=== PATIENT | male | born 1960 | race African-American/Black ===

== ENCOUNTER 2021-10-30 08:24 | Emergency (ER) | payer BC, MEDICAID ==
[~2021-10-30] VITALS: Ht 182.9 cm; Wt 193.0 kg
[2021-10-30 09:40] LABS: Basophils # (auto) 0.1 10 ^3/uL (0-0.2); Eosinophils # (auto) 0.1 10 ^3/uL (0-0.8); Hemoglobin 10.3 g/dL (13.5-17.5); Lymphocytes # (auto) 0.9 10 ^3/uL (0.4-5.4); Monocytes # (auto) 0.5 10 ^3/uL (0-1.3); Nucleated Red Blood Cells % 0.1 %
[2021-10-30 09:42] LABS: Basophils % (auto) 0.9 % (0.0-2.0); Eosinophils % (auto) 1.5 % (0.0-7.0); Hematocrit 32.3 % (41.0-53.0); Lymphocytes % (auto) 15.9 % (10.0-50.0); Mean Corpuscular Hemoglobin 24.9 pg (28.0-32.0); Mean Corpuscular Hgb Conc. 31.8 g/dL (32.0-36.0); Mean Corpuscular Volume 78.4 fL (80.0-100.0); Monocytes % (auto) 9.2 % (0.0-12.0); Neutrophils # (auto) 4.3 10 ^3/uL (1.6-8.6); Neutrophils % (auto) 72.5 % (37.0-80.0); Red Blood Cells 4.12 10^6/uL (4.5-5.90); Red Cell Distribution Width 15.9 % (11.8-14.3); White Blood Cell 5.9 10^3/uL (4.4-10.8)
[2021-10-30 09:51] LABS: Potassium 4.2 mmol/L (3.5-5.1)
[2021-10-30 10:04] LABS: Albumin 2.6 g/dL (3.4-5.0); BUN/Creatinine Ratio 22.9; Bilirubin, Total 0.8 mg/dL (0.2-1.0); Calcium 8.4 mg/dL (8.5-10.1); Total Protein 6.9 g/dL (6.4-8.2)
[2021-10-30 13:11] LABS: INR 1.07 (0.9-1.15); Partial Thromboplastin Time 32.2 sec (24.6-33.4)
[2021-10-30] MEDS ORDERED: ENOXAPARIN SOD 80 MG/0.8ML SYRINGE SC ONE (13:45)
[2021-10-30] MEDS ORDERED: PIPERACILLIN-TAZO 4.5GM 100 ML IV ONE (17:00)
[2021-10-30] MEDS ORDERED: FUROSEMIDE 40 MG/4 ML VIAL IV ONE (17:00)
[2021-10-30] MEDS ORDERED: VANCOMYCIN 1GM/250ML 250 ML IV ONE ×2 (20:00)
[2021-10-30] MEDS ORDERED: ACETAMINOPHEN 500 MG TAB PO ONE (20:00)
[2021-10-31 02:19] VITALS: BP 147/70
[2021-10-31 04:06] VITALS: BP 151/65
[2021-10-31] MEDS ORDERED: ACETAMINOPHEN 500 MG TAB PO ONE (07:30)
[2021-10-31] MEDS ORDERED: cefTRIAXone 1GM/50ML D5W 50 ML IV ONE (14:15)
[2021-10-31] MEDS ORDERED: HYDROcodone-ACET 5/325MG TAB PO ONE (14:15)
[2021-10-31] MEDS ORDERED: ACETYLCYSTEINE 10 %(100MG/ML) SOL 4ML NEB ONE (14:15)
[2021-10-31] MEDS ORDERED: AZITHROMYCIN 500MG/ 250ML 250 ML IV ONE (14:15)
[2021-10-31] MEDS ORDERED: ACETYLCYSTEINE 10 %(100MG/ML) SOL 4ML NEB SCH (18:00)
[2021-10-31] MEDS ORDERED: IPRATROPIUM BROM 0.5 MG/2.5ML INH SOL NEB ONE (18:00)
[2021-10-31] MEDS ORDERED: ALBUTEROL SULF 2.5 MG/0.5ML(0.5%) NEB SOLN NEB ONE (18:00)
[2021-10-31 19:36] VITALS: BP 142/58
== END 2021-10-31 20:26 | disposition short-term general hospital (02) ==
LOC: ER 08:24 → EDBD 08:24 → ER 10-31 20:26
DX: J81.1 Chronic pulmonary edema (principal); E11.65 Type 2 diabetes mellitus with hyperglycemia; E11.21 Type 2 diabetes mellitus with diabetic nephropathy; R74.8 Abnormal levels of other serum enzymes; E44.0 Moderate protein-calorie malnutrition; D63.8 Anemia in other chronic diseases classified elsewhere; R79.1 Abnormal coagulation profile; Z68.43 Body mass index [BMI] 50.0-59.9, adult; Z20.822 Contact with and (suspected) exposure to COVID-19
CPT/HCPCS: 36415; 36600; 71045; 80053; 82805; 84484; 85025; 85379; 85610; 85730; 87040; 87426; 93005; 96365; 96366; 96367; 96368; 96372; 96375; 99285; J0456; J0696; J1650; J1940; J2543; J3370; J7644

== ENCOUNTER 2021-11-11 18:07 | Inpatient (IN) | payer BC, MEDICAID ==
[~2021-11-11] VITALS: Ht 188 cm; Wt 206.0 kg
[2021-11-11] MEDS ORDERED: ENOXAPARIN SOD 100 MG/1 ML SYRINGE SC ONE (20:15)
[2021-11-11 20:17] LABS: Albumin 2.5 g/dL (3.4-5.0); BUN/Creatinine Ratio 23.5; Calcium 7.7 mg/dL (8.5-10.1); Magnesium 2.6 mg/dL (1.6-2.6); Potassium 4.6 mmol/L (3.5-5.1)
[2021-11-11 20:19] LABS: Bilirubin, Total 0.8 mg/dL (0.2-1.0); Total Protein 6.4 g/dL (6.4-8.2)
[2021-11-11 20:25] LABS: Basophils # (auto) 0.1 10 ^3/uL (0-0.2); Eosinophils # (auto) 0.2 10 ^3/uL (0-0.8); Eosinophils % (auto) 2.1 % (0.0-7.0); Hematocrit 37.5 % (41.0-53.0); Hemoglobin 11.5 g/dL (13.5-17.5); Lymphocytes # (auto) 1.5 10 ^3/uL (0.4-5.4); Lymphocytes % (auto) 18.9 % (10.0-50.0); Mean Corpuscular Hemoglobin 24.4 pg (28.0-32.0); Mean Corpuscular Hgb Conc. 30.5 g/dL (32.0-36.0); Mean Corpuscular Volume 79.8 fL (80.0-100.0); Monocytes # (auto) 0.9 10 ^3/uL (0-1.3); Neutrophils # (auto) 5.3 10 ^3/uL (1.6-8.6); Nucleated Red Blood Cells % 0.2 %; Red Cell Distribution Width 17.1 % (11.8-14.3); White Blood Cell 7.9 10^3/uL (4.4-10.8)
[2021-11-11] MEDS ORDERED: FUROSEMIDE 40 MG/4 ML VIAL IV ONE (20:30)
[2021-11-11] MEDS ORDERED: AZITHROMYCIN 500MG/ 250ML 250 ML IV ONE (21:15)
[2021-11-11] MEDS: NOREPINEPHRINE 8 MG/250ML KIT 250 ML IV SCH (21:18)
[2021-11-11] MEDS ORDERED: DEXTROSE (50%) 50ML SYRG IV PRN (23:00)
[2021-11-11] MEDS ORDERED: DOCUSATE SOD 100 MG CAP PO PRN (23:00)
[2021-11-11] MEDS ORDERED: ONDANSETRON HCL 4 MG/2 ML VIAL IV PRN (23:00)
[2021-11-12] VITALS (42 sets, daily range): BP systolic 86–142; BP diastolic 48–76
[2021-11-12] MEDS ORDERED: MORPHINE SULFATE INJ 2 MG/ml SYRG IV PRN (00:30)
[2021-11-12] MEDS ORDERED: NITROGLYCERIN 0.4 MG SL TAB SL PRN (00:30)
[2021-11-12] MEDS: ALBUMIN 25% 50 ML IV SCH ×3 (01:35→16:30)
[2021-11-12] MEDS: InsuLIN REG 1unit/0.01ml Soln (100units/ml) SC SCH ×4 (01:44→18:47)
[2021-11-12] MEDS: methylPREDNISolone SOD SUCC 40 MG/ML VL IV SCH ×3 (02:55→11:32)
[2021-11-12] MEDS: ACCU-CHEK COMFORT CURVE STRIP VI SCH ×4 (06:00→18:47)
[2021-11-12 07:32] LABS: Basophils # (auto) 0 10 ^3/uL (0-0.2); Basophils % (auto) 0.4 % (0.0-2.0); Eosinophils # (auto) 0 10 ^3/uL (0-0.8); Hematocrit 36.9 % (41.0-53.0); Lymphocytes # (auto) 0.8 10 ^3/uL (0.4-5.4); Monocytes # (auto) 0.2 10 ^3/uL (0-1.3); Neutrophils # (auto) 5.7 10 ^3/uL (1.6-8.6); Nucleated Red Blood Cells % 0.1 %
[2021-11-12 07:33] LABS: Eosinophils % (auto) 0.6 % (0.0-7.0); Hemoglobin 11.6 g/dL (13.5-17.5); Lymphocytes % (auto) 11.5 % (10.0-50.0); Mean Corpuscular Hemoglobin 24.8 pg (28.0-32.0); Mean Corpuscular Hgb Conc. 31.3 g/dL (32.0-36.0); Mean Corpuscular Volume 79.1 fL (80.0-100.0); Monocytes % (auto) 3.6 % (0.0-12.0); Neutrophils % (auto) 83.9 % (37.0-80.0); Red Blood Cells 4.66 10^6/uL (4.5-5.90); Red Cell Distribution Width 17.4 % (11.8-14.3); White Blood Cell 6.8 10^3/uL (4.4-10.8)
[2021-11-12 07:58] LABS: Albumin 2.7 g/dL (3.4-5.0); BUN/Creatinine Ratio 29.7; Bilirubin, Total 1.2 mg/dL (0.2-1.0); Calcium 8.5 mg/dL (8.5-10.1); Total Protein 6.6 g/dL (6.4-8.2)
[2021-11-12] MEDS: FAMOTIDINE (10MG/ML) 2ML VL IV SCH ×2 (09:46→21:22)
[2021-11-12] MEDS: AZITHROMYCIN 500MG/ 250ML 250 ML IV SCH (09:46)
[2021-11-12] MEDS ORDERED: FUROSEMIDE 40 MG/4 ML VIAL IV SCH (10:00)
[2021-11-12] MEDS ORDERED: HEPARIN SODIUM (PORCINE) 5000 UNITS/ML 1ML VIAL SC SCH (10:00)
[2021-11-12 13:33] LABS: Urine Bacteria NONE SEEN /hpf (None Seen); Urine Blood 1+ /uL (Negative); Urine Budding Yeast MANY /hpf (None Seen); Urine Mucus FEW (None Seen); Urine Specific Gravity 1.009 (1.001-1.035); Urine WBC 51 /hpf (0 - 3); Urine WBC Clumps PRESENT /hpf (None Seen)
[2021-11-12] MEDS ORDERED: CEFTRIAXONE SODIUM 2 GM in D5W 5% 50 ML IV ONE (14:15)
[2021-11-12] MEDS ORDERED: OPTISON 3ml Vial for INJ IV ONE (15:50)
[2021-11-12] MEDS: NOREPINEPHRINE 8 MG/250ML KIT 250 ML IV SCH (20:11)
[2021-11-12] MEDS: FUROSEMIDE 40 MG/4 ML VIAL IV SCH (21:21)
[2021-11-12] MEDS: APIXABAN 5 MG TAB PO SCH (21:22)
[2021-11-13] MEDS: InsuLIN REG 1unit/0.01ml Soln (100units/ml) SC SCH ×5 (00:09→23:15)
[2021-11-13 03:14] VITALS: BP 143/68
[2021-11-13 06:04] VITALS: BP 125/64
[2021-11-13 06:30] LABS: Potassium 4.8 mmol/L (3.5-5.1)
[2021-11-13 06:35] LABS: BUN/Creatinine Ratio 29.5; Calcium 8.5 mg/dL (8.5-10.1)
[2021-11-13] MEDS: ACCU-CHEK COMFORT CURVE STRIP VI SCH ×5 (06:40→23:12)
[2021-11-13] MEDS: AZITHROMYCIN 500MG/ 250ML 250 ML IV SCH (08:32)
[2021-11-13] MEDS: APIXABAN 5 MG TAB PO SCH ×2 (08:33→23:02)
[2021-11-13] MEDS: FUROSEMIDE 40 MG/4 ML VIAL IV SCH (08:41)
[2021-11-13 09:00] VITALS: BP 142/75
[2021-11-13] MEDS: CEFTRIAXONE SODIUM 2 GM in D5W 5% 50 ML IV SCH (09:00)
[2021-11-13] MEDS ORDERED: methylPREDNISolone SOD SUCC 40 MG/ML VL IV SCH (10:00)
[2021-11-13] MEDS: FAMOTIDINE (10MG/ML) 2ML VL IV SCH ×2 (12:38→23:02)
[2021-11-13 17:00] VITALS: BP 133/55
[2021-11-13 22:00] VITALS: BP 147/75
[2021-11-13] MEDS: INSULIN LANTUS (GLARGINE) 1 /0.01ml (100units/ml) SC SCH (23:05)
[2021-11-14 05:00] VITALS: BP 148/91
[2021-11-14] MEDS: ACCU-CHEK COMFORT CURVE STRIP VI SCH ×4 (06:08→22:55)
[2021-11-14] MEDS: InsuLIN REG 1unit/0.01ml Soln (100units/ml) SC SCH ×4 (06:52→23:13)
[2021-11-14] MEDS ORDERED: ALBUTEROL SULF 2.5 MG/0.5ML(0.5%) NEB SOLN NEB PRN (07:45)
[2021-11-14] MEDS ORDERED: ALBUTEROL SULF 2.5 MG/0.5ML(0.5%) NEB SOLN NEB ONE (07:45)
[2021-11-14 07:49] LABS: BUN/Creatinine Ratio 27.6; Calcium 8.9 mg/dL (8.5-10.1); Potassium 4.6 mmol/L (3.5-5.1)
[2021-11-14] MEDS: FAMOTIDINE (10MG/ML) 2ML VL IV SCH ×2 (08:41→21:33)
[2021-11-14] MEDS: CEFTRIAXONE SODIUM 2 GM in D5W 5% 50 ML IV SCH (08:41)
[2021-11-14] MEDS: FUROSEMIDE 40 MG/4 ML VIAL IV SCH ×2 (08:42)
[2021-11-14] MEDS: APIXABAN 5 MG TAB PO SCH ×2 (08:42→21:33)
[2021-11-14 09:00] VITALS: BP 123/77
[2021-11-14] MEDS: AZITHROMYCIN 500MG/ 250ML 250 ML IV SCH (10:00)
[2021-11-14] MEDS: ACETAMINOPHEN 325 MG TAB PO PRN (12:02)
[2021-11-14 13:00] VITALS: BP 139/71
[2021-11-14] MEDS ORDERED: predniSONE 20 MG TAB PO ONE (14:30)
[2021-11-14] MEDS ORDERED: VANCOMYCIN PER PHARMACY 0 MG IV SCH (14:30)
[2021-11-14] MEDS ORDERED: DOXYCYCLINE 100 MG TAB/CAP PO ONE (14:30)
[2021-11-14 17:00] VITALS: BP 132/75
[2021-11-14] MEDS: DOXYCYCLINE 100 MG TAB/CAP PO SCH (21:33)
[2021-11-14 22:00] VITALS: BP 142/72
[2021-11-14] MEDS: INSULIN LANTUS (GLARGINE) 1 /0.01ml (100units/ml) SC SCH (23:13)
[2021-11-14 23:44] VITALS: BP 147/72
[2021-11-15 05:00] VITALS: BP 146/76
[2021-11-15] MEDS: ACCU-CHEK COMFORT CURVE STRIP VI SCH ×4 (06:26→21:56)
[2021-11-15] MEDS: InsuLIN REG 1unit/0.01ml Soln (100units/ml) SC SCH ×4 (06:45→23:29)
[2021-11-15 09:00] VITALS: BP 139/72
[2021-11-15] MEDS: CEFTRIAXONE SODIUM 2 GM in D5W 5% 50 ML IV SCH (09:03)
[2021-11-15] MEDS: DOXYCYCLINE 100 MG TAB/CAP PO SCH ×2 (09:04→21:56)
[2021-11-15] MEDS: FAMOTIDINE (10MG/ML) 2ML VL IV SCH ×2 (09:04→21:56)
[2021-11-15] MEDS: APIXABAN 5 MG TAB PO SCH ×2 (09:05→21:56)
[2021-11-15] MEDS: FUROSEMIDE 40 MG/4 ML VIAL IV SCH (09:06)
[2021-11-15] MEDS ORDERED: predniSONE 20 MG TAB PO SCH (10:00)
[2021-11-15] MEDS ORDERED: AZITHROMYCIN 250 MG TAB PO SCH (10:00)
[2021-11-15 12:27] LABS: Calcium 9.1 mg/dL (8.5-10.1); Potassium 4.5 mmol/L (3.5-5.1)
[2021-11-15 13:00] VITALS: BP 138/52
[2021-11-15 13:01] LABS: BUN/Creatinine Ratio 23.6
[2021-11-15] MEDS: ACETAMINOPHEN 325 MG TAB PO PRN (15:06)
[2021-11-15 17:00] VITALS: BP 158/84
[2021-11-15 22:22] VITALS: BP 123/74
[2021-11-15] MEDS: INSULIN LANTUS (GLARGINE) 1 /0.01ml (100units/ml) SC SCH (22:31)
[2021-11-16 05:00] VITALS: BP 138/64
[2021-11-16] MEDS: ACCU-CHEK COMFORT CURVE STRIP VI SCH ×4 (06:20→22:00)
[2021-11-16 06:38] LABS: Calcium 8.6 mg/dL (8.5-10.1); Potassium 3.9 mmol/L (3.5-5.1)
[2021-11-16] MEDS: InsuLIN REG 1unit/0.01ml Soln (100units/ml) SC SCH ×4 (06:41→23:03)
[2021-11-16 09:00] VITALS: BP 128/71
[2021-11-16] MEDS: CEFTRIAXONE SODIUM 2 GM in D5W 5% 50 ML IV SCH (09:22)
[2021-11-16] MEDS: FAMOTIDINE (10MG/ML) 2ML VL IV SCH ×2 (09:23→22:42)
[2021-11-16] MEDS: FUROSEMIDE 40 MG/4 ML VIAL IV SCH (09:23)
[2021-11-16] MEDS: predniSONE 20 MG TAB PO SCH (09:24)
[2021-11-16] MEDS: APIXABAN 5 MG TAB PO SCH ×2 (09:24→22:42)
[2021-11-16] MEDS: DOXYCYCLINE 100 MG TAB/CAP PO SCH ×2 (09:24→22:42)
[2021-11-16 13:00] VITALS: BP 112/70
[2021-11-16] MEDS: HYDROcodone-ACET 5/325MG TAB PO PRN (16:11)
[2021-11-16 17:00] VITALS: BP 120/55
[2021-11-16 22:00] VITALS: BP 125/68
[2021-11-16] MEDS: INSULIN LANTUS (GLARGINE) 1 /0.01ml (100units/ml) SC SCH (23:09)
[2021-11-17 04:56] VITALS: BP 133/64
[2021-11-17 05:31] LABS: Calcium 8.4 mg/dL (8.5-10.1); Potassium 4.1 mmol/L (3.5-5.1)
[2021-11-17 05:33] LABS: BUN/Creatinine Ratio 25.3
[2021-11-17] MEDS: InsuLIN REG 1unit/0.01ml Soln (100units/ml) SC SCH ×4 (06:00→23:29)
[2021-11-17] MEDS: ACCU-CHEK COMFORT CURVE STRIP VI SCH ×4 (06:41→23:30)
[2021-11-17 09:20] VITALS: BP 137/69
[2021-11-17] MEDS: CEFTRIAXONE SODIUM 2 GM in D5W 5% 50 ML IV SCH (09:39)
[2021-11-17] MEDS: HYDROcodone-ACET 5/325MG TAB PO PRN ×2 (09:40→22:16)
[2021-11-17] MEDS: APIXABAN 5 MG TAB PO SCH ×2 (09:40→22:14)
[2021-11-17] MEDS: predniSONE 20 MG TAB PO SCH (09:41)
[2021-11-17] MEDS: DOXYCYCLINE 100 MG TAB/CAP PO SCH ×2 (09:42→22:16)
[2021-11-17] MEDS: FUROSEMIDE 40 MG/4 ML VIAL IV SCH (09:42)
[2021-11-17] MEDS: FAMOTIDINE (10MG/ML) 2ML VL IV SCH ×2 (09:42→22:13)
[2021-11-17 12:30] VITALS: BP 134/83
[2021-11-17 16:59] VITALS: BP 126/73
[2021-11-17 18:30] VITALS: BP 140/76
[2021-11-17 22:00] VITALS: BP 140/76
[2021-11-17] MEDS: INSULIN LANTUS (GLARGINE) 1 /0.01ml (100units/ml) SC SCH (23:28)
[2021-11-18 05:00] VITALS: BP 149/65
[2021-11-18 05:30] LABS: BUN/Creatinine Ratio 27.2; Calcium 8.2 mg/dL (8.5-10.1); Potassium 4.3 mmol/L (3.5-5.1)
[2021-11-18] MEDS: ACCU-CHEK COMFORT CURVE STRIP VI SCH ×3 (06:45→18:03)
[2021-11-18] MEDS: InsuLIN REG 1unit/0.01ml Soln (100units/ml) SC SCH ×3 (06:50→18:03)
[2021-11-18 08:36] VITALS: BP 139/76
[2021-11-18] MEDS: CEFTRIAXONE SODIUM 2 GM in D5W 5% 50 ML IV SCH (09:33)
[2021-11-18] MEDS: FAMOTIDINE (10MG/ML) 2ML VL IV SCH (09:33)
[2021-11-18] MEDS: FUROSEMIDE 40 MG/4 ML VIAL IV SCH (09:34)
[2021-11-18] MEDS: predniSONE 20 MG TAB PO SCH (09:34)
[2021-11-18] MEDS: APIXABAN 5 MG TAB PO SCH (09:35)
[2021-11-18] MEDS: DOXYCYCLINE 100 MG TAB/CAP PO SCH (09:36)
[2021-11-18] MEDS: HYDROcodone-ACET 5/325MG TAB PO PRN (09:48)
[2021-11-18] MEDS ORDERED: INSLANTI SC (12:15)
[2021-11-18] MEDS ORDERED: DOX100T PO (12:15)
[2021-11-18] MEDS ORDERED: APIX5TAB PO (12:15)
[2021-11-18] MEDS ORDERED: LOSA-69 PO (12:18)
[2021-11-18] MEDS ORDERED: FURO40TA4 PO (12:19)
[2021-11-18] MEDS ORDERED: ATO40T PO (12:20)
[2021-11-18] MEDS ORDERED: ALBUAER3 IN (12:21)
[2021-11-18] MEDS: ACETAMINOPHEN 325 MG TAB PO PRN ×2 (12:37→18:04)
[2021-11-18 13:20] VITALS: BP 122/73
[2021-11-18 15:00] VITALS: BP 139/76
[2021-11-18 15:13] VITALS: BP 139/76
[2021-11-19] MEDS ORDERED: APIXABAN 5 MG TAB PO SCH (22:00)
== END 2021-11-18 20:00 | disposition home or self-care (01) | DRG 175 ==
LOC: ER 18:07 → EDBD 18:07 → TELE 11-12 00:28 → ICU WEST 11-12 06:35 → TELE-EAST 11-12 22:45
PROVIDERS: ADMIT Nurse Practitioner Family; ATTEND Internal Medicine Nephrology
PROC: 05HB33Z Insertion of Infusion Device into Right Basilic Vein, Percutaneous Approach (ICD-10-PCS; principal; 2021-11-11)
PROC: B54MZZA Ultrasonography of Right Upper Extremity Veins, Guidance (ICD-10-PCS; 2021-11-11)
PROC: 5A09357 Assistance with Respiratory Ventilation, Less than 24 Consecutive Hours, Continuous Positive Airway Pressure (ICD-10-PCS; 2021-11-12)
PROC: 5A09357 Assistance with Respiratory Ventilation, Less than 24 Consecutive Hours, Continuous Positive Airway Pressure (ICD-10-PCS; 2021-11-13)
PROC: 5A09357 Assistance with Respiratory Ventilation, Less than 24 Consecutive Hours, Continuous Positive Airway Pressure (ICD-10-PCS; 2021-11-14)
PROC: 5A09357 Assistance with Respiratory Ventilation, Less than 24 Consecutive Hours, Continuous Positive Airway Pressure (ICD-10-PCS; 2021-11-15)
PROC: 5A09357 Assistance with Respiratory Ventilation, Less than 24 Consecutive Hours, Continuous Positive Airway Pressure (ICD-10-PCS; 2021-11-17)
DX: I26.99 Other pulmonary embolism without acute cor pulmonale (principal); I50.33 Acute on chronic diastolic (congestive) heart failure; J18.9 Pneumonia, unspecified organism; J96.01 Acute respiratory failure with hypoxia; J44.0 Chronic obstructive pulmonary disease with (acute) lower respiratory infection; R57.9 Shock, unspecified; Z68.44 Body mass index [BMI] 60.0-69.9, adult; I13.0 Hypertensive heart and chronic kidney disease with heart failure and stage 1 through stage 4 chronic kidney disease, or unspecified chronic kidney disease; N39.0 Urinary tract infection, site not specified; N17.9 Acute kidney failure, unspecified; J44.1 Chronic obstructive pulmonary disease with (acute) exacerbation; D63.8 Anemia in other chronic diseases classified elsewhere; E11.22 Type 2 diabetes mellitus with diabetic chronic kidney disease; E66.01 Morbid (severe) obesity due to excess calories; E83.41 Hypermagnesemia; E87.5 Hyperkalemia; E88.09 Other disorders of plasma-protein metabolism, not elsewhere classified; G47.33 Obstructive sleep apnea (adult) (pediatric); M10.9 Gout, unspecified; N18.31 Chronic kidney disease, stage 3a; E78.5 Hyperlipidemia, unspecified; I25.10 Atherosclerotic heart disease of native coronary artery without angina pectoris; Z20.822 Contact with and (suspected) exposure to COVID-19; Z80.9 Family history of malignant neoplasm, unspecified; Z88.8 Allergy status to other drugs, medicaments and biological substances; Z72.0 Tobacco use
CPT/HCPCS: 36415; 36600; 71045; 80048; 80053; 81001; 82728; 82805; 82962; 83036; 83735; 83880; 84484; 85025; 85379; 86141; 87077; 87081; 87086; 87088; 87186; 87205; 93005; 93306; 93970; 94640; 94660; 96365; 96372; 97110; 97116; 97163; 97530; 99291; G0378; J0696; J1815; J3490; J7060; Q9956